=== PATIENT | female | born 1990 | race Caucasian/White ===

== ENCOUNTER 2022-05-06 15:57 | Emergency (ER) | payer MEDICARE ==
[~2022-05-06 15:57] MED LIST: MACROBID 100 M100 MG PO; ZOFRAN4 MG PO
[2022-05-06] MEDS ORDERED: AMOX TR-K CLV1 EAC4 PO ×2 (16:19→16:26)
[2022-05-06] MEDS ORDERED: MAGIC MOUTHWASH (16:45)
== END 2022-05-06 17:08 | disposition home or self-care (01) ==
LOC: ER1 15:57
DX: S01.511A Laceration without foreign body of lip, initial encounter (principal); Z23 Encounter for immunization; W26.8XXA Contact with other sharp object(s), not elsewhere classified, initial encounter
CPT/HCPCS: 90471; 90714; 96372; 99282; J1885